=== PATIENT | female | born 1985 | race Caucasian/White ===

== ENCOUNTER 2017-06-14 01:31 | Emergency (ER) | payer OTHER ==
[2017-06-14 01:31] VITALS: BMI 20.4
[2017-06-14 01:39] VITALS: RESP 17; TEMP 98.2
[2017-06-14] MEDS ORDERED: Sodium Chloride 0.9% 1,000 ML IV STA (01:51)
--- NOTE | 2017-06-14 01:58 | ED PDOC ---
HPI: General Adult Time Seen by Provider: 06/14/17 01:36 Chief Complaint (Nursing): GI Problem Chief Complaint (Provider): dizziness History Per: Patient History/Exam Limitations: no limitations Onset/Duration Of Symptoms: Hrs Current Symptoms Are (Timing): Still Present Additional History Per: Patient, Family Additional Complaint(s): 32 y/o female presents for eval of dizziness x 1 hour. states patient was sleeping and woke up with symptoms. Associated "pressure" to top of head. Patient states dizziness worse with movement of head, notes one episode of vomiting upon arrival to ED. Denies fever, neck pain, extremity numbness/ weakness, vision changes, chest pain, shortness of breath, palpitations, abdominal pain. Patient moved here from [facility] 3 weeks ago. Past Medical History Reviewed: Historical Data, Nursing Documentation, Vital Signs Vital Signs: Last Vital Signs Temp 98.2 F 06/14/17 01:37 Pulse 74 06/14/17 05:18 Resp 17 06/14/17 01:37 BP 104/63 06/14/17 05:18 Pulse Ox 99 06/14/17 05:18 - Medical History PMH: No Chronic Diseases - Surgical History Surgical History: - Family History Family History: States: No Known Family Hx - Living Arrangements Living Arrangements: With Family - Immunization History Hx Tetanus Toxoid Vaccination: No Hx Influenza Vaccination: No Hx Pneumococcal Vaccination: No - Home Medications Home Medications: Ambulatory Orders Medication Instructions Recorded Acetaminophen [Tylenol Extra 500 mg PO Q4 PRN #30 tablet 06/14/17 Strength] Amoxicillin/Clavulanate [Augmentin 1 tab PO Q12 #14 tab 06/14/17 875 MG-125 MG] Fluticasone Nasal [Flonase] 1 actuation NS BID #1 bottle 06/14/17 Meclizine [Meclizine*] 25 mg PO TID PRN #21 tab 06/14/17 - Allergies Allergies/Adverse Reactions: Allergies Allergy/AdvReac Type Severity Reaction Status Date / Time No Known Allergies Allergy Verified 06/04/17 12:32 Review of Systems ROS Statement: Except As Marked, All Systems Reviewed And Found Negative Gastrointestinal: Positive for: Nausea, Vomiting Neurological: Positive for: Headache, Dizziness Physical Exam - Reviewed Nursing Documentation Reviewed: Yes Vital Signs Reviewed: Yes - Physical Exam Appears: Positive for: Well, Non-toxic, Uncomfortable Head Exam: Positive for: ATRAUMATIC, NORMAL INSPECTION, NORMOCEPHALIC Skin: Positive for: Normal Color Eye Exam: Positive for: Normal appearance, EOMI, PERRL, Nystagmus ENT: Positive for: Normal ENT Inspection Cardiovascular/Chest: Positive for: Regular Rate, Rhythm Respiratory: Positive for: Normal Breath Sounds Gastrointestinal/Abdominal: Positive for: Normal Exam Back: Positive for: Normal Inspection Extremity: Positive for: Normal ROM Neurologic/Psych: Positive for: Alert, Oriented - Laboratory Results Result Diagrams: 06/14/17 02:16 06/14/17 02:16 - ECG ECG: Positive for: Viewed By Me (reviewed by ED attending) ECG Rhythm: Positive for: Sinus Rhythm O2 Sat by Pulse Oximetry: 100 - Progress ED Course And Treament: labs, ekg, ct head, IV fluids, PO meclizine, PO tylenol EXAM: CT Head Without Intravenous Contrast CLINICAL HISTORY: 32 years, female; Pain; Headache; Additional info: Headache, dizziness TECHNIQUE: Axial computed tomography images of the head/brain without intravenous contrast. All CT scans at this facility use one or more dose reduction techniques, viz.: automated exposure control; ma/kV adjustment per patient size (including targeted exams where dose is matched to indication; i.e. head); or iterative reconstruction technique. Coronal and sagittal reformatted images were created and reviewed. COMPARISON: No relevant prior studies available. FINDINGS: Brain: Unremarkable. No hemorrhage. No significant white matter disease. No edema. Ventricles: Unremarkable. No ventriculomegaly. Bones/joints: Unremarkable. No acute fracture. Soft tissues: Unremarkable. Sinuses: Mucosal thickening in the ethmoid air cells and maxillary sinuses. Air- fluid levels present in the maxillary sinuses. Mastoid air cells: Unremarkable as visualized. No mastoid effusion. IMPRESSION: No acute intracranial findings. Paranasal sinus disease as described above with air-fluid levels in the maxillary sinuses. Clinical correlation for symptoms of acute sinusitis recommended. On re-eval, patient states she is feeling better. Patient educated on findings, discharged with rx augmentin, flonase, tylenol, meclizine. Advised follow up PMD 2-3 days. Return to ED for worsening/concerning symptoms. Disposition - Clinical Impression Clinical Impression: Sinusitis - Patient ED Disposition Is Patient to be Admitted: No Counseled Patient/Family Regarding: Studies Performed, Diagnosis, Need For Followup, Rx Given - Disposition Referrals: [facility] [Outside] Disposition: Routine/Home Disposition Time: 04:53 Condition: IMPROVED Prescriptions: Acetaminophen [Tylenol Extra Strength] 500 mg PO Q4 PRN #30 tablet PRN Reason: Pain, Moderate (4-7) Amoxicillin/Clavulanate [Augmentin 875 MG-125 MG] 1 tab PO Q12 #14 tab Fluticasone Nasal [Flonase] 1 actuation NS BID #1 bottle Meclizine [Meclizine*] 25 mg PO TID PRN #21 tab PRN Reason: Dizziness Instructions: Sinusitis (ED)
[2017-06-14 02:19] LABS: BASO % 0.4 % (0.0-2.0); EOS # 0.3 K/uL (0.0-0.7); EOS % 4.1 % (0.0-4.0); HEMATOCRIT 35.4 % (34.0-47.0); LYMPH % 43.6 % (20.0-40.0); MEAN CELL VOLUME 90.1 fl (81.0-99.0); MEAN CORPUSCULAR HEMOGLOBIN 30.6 pg (27.0-31.0); MEAN PLATELET VOLUME 8.8 fl (7.2-11.7); MONO # 0.6 K/uL (0.0-0.8); MONO % 8.2 % (0.0-10.0); NEUT % 43.7 % (50.0-75.0); NRBC % 0.1 % (0.0-0.0); RED CELL DISTRIBUTION WIDTH 13.1 % (11.5-14.5); WHITE BLOOD COUNT 6.9 K/uL (4.8-10.8)
[2017-06-14 02:37] LABS: ALB/GLOB RATIO 1.2 (1.0-2.1); BLOOD UREA NITROGEN 7 mg/dl (7-17); CALCIUM 8.6 mg/dL (8.4-10.2); CARBON DIOXIDE 25 mmol/L (22-30); CHLORIDE 105 mmol/L (98-107); GFR AFRICAN-AMERICAN > 60; GLUCOSE,RANDOM 108 mg/dL (65-105); POTASSIUM 4.3 MMOL/L (3.6-5.0); SODIUM 139 mmol/l (132-148)
[2017-06-14 02:38] LABS: ALKALINE PHOSPHATASE 62 U/L (38-126); ALT/SGPT 36 U/L (9-52); AST/SGOT 24 U/L (14-36); BILIRUBIN,TOTAL 0.7 mg/dl (0.2-1.3)
[2017-06-14 05:19] VITALS: BP 104/63; PULSE 74
[2017-06-14 05:22] VITALS: O2SAT 100
--- NOTE | 2017-06-14 09:00 | CARD ---
APPROVED REPORT EKG Measurement Heart [id number] <Conclusion> Normal sinus rhythm Normal ECG
--- NOTE | 2017-06-14 09:19 | CT ---
PROCEDURE: CT HEAD WITHOUT CONTRAST. HISTORY: headache, dizziness COMPARISON: None available. TECHNIQUE: Axial computed tomography images were obtained through the head/brain without intravenous contrast. Radiation dose: Total exam DLP = 868.28 MGy-cm. This CT exam was performed using one or more of the following dose reduction techniques: Automated exposure control, adjustment of the mA and/or kV according to patient size, and/or use of iterative reconstruction technique. FINDINGS: HEMORRHAGE: No acute parenchymal, subarachnoid or extra-axial hemorrhage. BRAIN: No mass effect or edema. No atrophy or chronic microvascular ischemic changes. VENTRICLES: Unremarkable. No hydrocephalus. CALVARIUM: Unremarkable. PARANASAL SINUSES: Moderate mucosal thickening both maxillary sinuses and to a lesser degree ethmoid air complex. MASTOID AIR CELLS: Unremarkable as visualized. No inflammatory changes. OTHER FINDINGS: None. IMPRESSION: No acute intracranial hemorrhage. Mucoperiosteal inflammatory changes within the aforementioned paranasal sinuses.
== END 2017-06-14 05:20 | disposition home or self-care (01) ==
LOC: H.ER 01:31
DX: J32.9 Chronic sinusitis, unspecified (principal)
CPT/HCPCS: 70450; 80053; 81025; 85025; 93005; 96374; 99283; J2405; J7040

== ENCOUNTER 2017-09-23 10:50 | Emergency (ER) | payer OTHER ==
[2017-09-23 10:50] VITALS: BMI 20.4
[2017-09-23 11:12] VITALS: TEMP 97.9
[2017-09-23] MEDS ORDERED: Lactated Ringer's 1,000 ML IV SCH (12:30)
[2017-09-23 12:31] LABS: BASO % 0.4 % (0.0-2.0); EOS % 0.6 % (0.0-4.0); HEMATOCRIT 33.1 % (34.0-47.0); LYMPH # 1.5 K/uL (1.0-4.3); LYMPH % 17.4 % (20.0-40.0); MEAN CORPUSCULAR HGB CONC 34.5 g/dL (33.0-37.0); MONO # 0.6 K/uL (0.0-0.8); MONO % 7.4 % (0.0-10.0); NEUT # 6.2 K/uL (1.8-7.0); NEUT % 74.2 % (50.0-75.0); NRBC % 0.1 % (0.0-0.0); RED CELL DISTRIBUTION WIDTH 14.7 % (11.5-14.5); WHITE BLOOD COUNT 8.4 K/uL (4.8-10.8)
[2017-09-23 12:39] LABS: ALB/GLOB RATIO 1.1 (1.0-2.1); ALKALINE PHOSPHATASE 130 U/L (38-126); ALT/SGPT 46 U/L (9-52); AST/SGOT 30 U/L (14-36); BILIRUBIN,TOTAL 1.7 mg/dl (0.2-1.3); BLOOD UREA NITROGEN 4 mg/dl (7-17); CALCIUM 9.3 mg/dL (8.4-10.2); CARBON DIOXIDE 25 mmol/L (22-30); CHLORIDE 102 mmol/L (98-107); GFR AFRICAN-AMERICAN > 60; GLUCOSE,RANDOM 97 mg/dL (65-105); POTASSIUM 4.2 MMOL/L (3.6-5.0); SODIUM 137 mmol/l (132-148); TOTAL PROTEIN 7.9 G/DL (6.3-8.2)
--- NOTE | 2017-09-23 12:41 | US ---
PROCEDURE: OB Pelvic Ultrasound HISTORY: right lower abdominal pain COMPARISON: None available. FINDINGS: UTERUS: Gestational sac: Single intrauterine gestation. Measures 5.9 centimeter compatible with an estimated gestational age of 12 weeks, 1 day. pole: Measures 6.3 centimeter compatible with estimated gestational age of 12 weeks, 5 days. Heart rate: 163 bpm. age (Ultrasound estimated): 12 weeks, 3 days Joeclin-gestational hemorrhage: None. Date of delivery (Ultrasound estimated) : 04/04/2018. Uterus measures 10.9 x 8.2 x 7.7 cm. Anteverted. Normal in size and appearance. CERVIX: Long and closed. No cervical abnormality seen. RIGHT OVARY: Not visualized. LEFT OVARY: Measures 2.3 x 2.9 x 1.6 cm. No solid mass. Normal flow. FREE FLUID: None. OTHER FINDINGS: None. IMPRESSION: Single viable intrauterine gestation with average ultrasound age of 12 weeks, 3 days. heart rate 160 beats per minute. Nonvisualization of the right ovary.
[2017-09-23 13:17] LABS: RBC URINE < 1 /hpf (0-3); URINE BACTERIA OCC (<OCC); URINE BILIRUBIN NEGATIVE (NEGATIVE); URINE BLOOD NEGATIVE (NEGATIVE); URINE COLOR YELLOW (YELLOW); URINE GLUCOSE (UA) NEG (Normal); URINE KETONE 20 mg/dL (NEGATIVE); URINE LEUKOCYTE ESTERASE NEG Leu/uL (Negative); URINE PROTEIN NEGATIVE (NEGATIVE); URINE UROBILINOGEN 0.2-1.0 mg/dL (0.2-1.0); WBC URINE < 1 /hpf (0-5)
--- NOTE | 2017-09-23 13:41 | ED PDOC ---
HPI: Abdomen Time Seen by Provider: 09/23/17 11:07 Chief Complaint (Nursing): Back Pain Chief Complaint (Provider): Left sided pelvic pain, History Per: Patient History/Exam Limitations: no limitations Onset/Duration Of Symptoms: Days Outside of [place] travel?: No Current Symptoms Are (Timing): Still Present Additional Complaint(s): 2 days of Left pelvic pain, approx 12 weeks . No vaginal bleeding. Past Medical History Reviewed: Historical Data, Nursing Documentation, Vital Signs Vital Signs: Last Vital Signs Temp 97.9 F 09/23/17 11:11 Pulse 121 H 09/23/17 11:11 Resp 22 09/23/17 11:11 BP 103/60 09/23/17 11:11 Pulse Ox 100 09/23/17 11:11 - Medical History PMH: No Chronic Diseases - Surgical History Surgical History: - Family History Family History: States: No Known Family Hx - Living Arrangements Living Arrangements: With Family - Social History Current smoker - smoking cessation education provided: No - Immunization History Hx Tetanus Toxoid Vaccination: No Hx Influenza Vaccination: No Hx Pneumococcal Vaccination: No - Home Medications Home Medications: Ambulatory Orders Medication Instructions Recorded Acetaminophen [Tylenol Extra 500 mg PO Q4 PRN #30 tablet 06/14/17 Strength] Amoxicillin/Clavulanate [Augmentin 1 tab PO Q12 #14 tab 06/14/17 875 MG-125 MG] Fluticasone Nasal [Flonase] 1 actuation NS BID #1 bottle 06/14/17 Meclizine [Meclizine*] 25 mg PO TID PRN #21 tab 06/14/17 Nitrofurantoin Macrocrystals 100 mg PO BID #10 cap 09/23/17 [Macrobid] - Allergies Allergies/Adverse Reactions: Allergies Allergy/AdvReac Type Severity Reaction Status Date / Time No Known Allergies Allergy Verified 06/04/17 12:32 Review of Systems ROS Statement: Except As Marked, All Systems Reviewed And Found Negative Constitutional: Negative for: Fever, Chills Gastrointestinal: Positive for: Abdominal Pain. Negative for: Nausea, Vomiting Genitourinary Female: Negative for: Dysuria, Vaginal Bleeding Physical Exam - Reviewed Nursing Documentation Reviewed: Yes Vital Signs Reviewed: Yes - Physical Exam Appears: Positive for: Well, Non-toxic, No Acute Distress Head Exam: Positive for: ATRAUMATIC, NORMAL INSPECTION, NORMOCEPHALIC Skin: Positive for: Normal Color, Warm, DRY Eye Exam: Positive for: Normal appearance ENT: Positive for: Normal ENT Inspection Neck: Positive for: Normal, Painless ROM Cardiovascular/Chest: Positive for: Regular Rate, Rhythm Respiratory: Positive for: Normal Breath Sounds. Negative for: Accessory Muscle Use Gastrointestinal/Abdominal: Positive for: Tenderness (Left lower pelvic ). Negative for: Normal Exam Back: Positive for: Normal Inspection. Negative for: L CVA Tenderness, R CVA Tenderness Extremity: Positive for: Normal ROM Neurologic/Psych: Positive for: Alert, Oriented - Laboratory Results Result Diagrams: 09/23/17 12:27 09/23/17 12:27 - ECG O2 Sat by Pulse Oximetry: 100 Medical Decision Making Medical Decision Making: US - Normal. Urine - Occ bacteria Disposition - Clinical Impression Clinical Impression: Round ligament pain, UTI (urinary tract infection) - Patient ED Disposition Is Patient to be Admitted: No Counseled Patient/Family Regarding: Diagnosis, Need For Followup, Rx Given - Disposition Disposition: Routine/Home Disposition Time: 13:42 Condition: GOOD Prescriptions: Nitrofurantoin Macrocrystals [Macrobid] 100 mg PO BID #10 cap Instructions: Urinary Tract Infection in Women (ED)
[2017-09-23 14:29] VITALS: BP 121/65; PULSE 88; RESP 14; O2SAT 99
== END 2017-09-23 14:28 | disposition home or self-care (01) ==
LOC: H.ER 10:50
DX: O23.40 Unspecified infection of urinary tract in pregnancy, unspecified trimester (principal)
CPT/HCPCS: 76817; 80053; 81003; 85025; 87086; 87181; 99283; J7120